=== PATIENT | male | born 1970 | race Caucasian/White ===

== ENCOUNTER 2017-09-15 23:58 | Emergency (ER) | payer OTHER ==
[~2017-09-15] VITALS: Ht 175.3 cm; Wt 83.9 kg
[~2017-09-15 23:58] MED LIST: CATAFLAM50 MG PO; ORPH100T PO; VASOTEC5 MG PO
[2017-09-16] MEDS ORDERED: CIPRO500 MG PO (03:38)
[2017-09-16] MEDS ORDERED: KETO10TA2 PO (03:38)
== END 2017-09-16 03:53 | disposition home or self-care (01) ==
LOC: ER 23:58
DX: R10.31 Right lower quadrant pain (principal); N39.0 Urinary tract infection, site not specified